=== PATIENT | female | born 1950 | race Caucasian/White ===

== ENCOUNTER → 2023-12-07 08:56 | Outpatient (REF) | payer OTHER, SELFPAY | LOC: HWRCS 08:56 | PROVIDERS: ATTENDING PHYSICIAN Internal Medicine Cardiovascular Disease; FAMILY PHYSICIAN Family Medicine | DX: Z98.890 Other specified postprocedural states (principal); I73.9 Peripheral vascular disease, unspecified; I10 Essential (primary) hypertension; I71.21 Aneurysm of the ascending aorta, without rupture; I31.8 Other specified diseases of pericardium | CPT/HCPCS: 93306 ==

== ENCOUNTER → 2023-12-28 08:22 | Outpatient (REF) | payer OTHER, SELFPAY | LOC: DHCBC/DCA 08:22 | PROVIDERS: ATTENDING PHYSICIAN Internal Medicine Cardiovascular Disease; FAMILY PHYSICIAN Family Medicine | DX: I25.10 Atherosclerotic heart disease of native coronary artery without angina pectoris (principal); Z98.890 Other specified postprocedural states; I73.9 Peripheral vascular disease, unspecified | CPT/HCPCS: 78452; 93017; A9500 ==

== ENCOUNTER → 2024-01-17 09:43 | Outpatient (REF) | payer OTHER, SELFPAY | LOC: RAD 09:43 | PROVIDERS: ATTENDING PHYSICIAN Surgery Vascular Surgery; FAMILY PHYSICIAN Family Medicine | DX: I73.9 Peripheral vascular disease, unspecified (principal) | CPT/HCPCS: 93922; 93925 ==

== ENCOUNTER → 2024-08-03 13:47 | Outpatient (REF) | payer OTHER, SELFPAY | LOC: RAD 13:47 | PROVIDERS: ATTENDING PHYSICIAN Surgery Vascular Surgery; FAMILY PHYSICIAN Family Medicine | DX: I73.9 Peripheral vascular disease, unspecified (principal) | CPT/HCPCS: 93922; 93925 ==

== ENCOUNTER 2024-08-07 19:26 | Emergency (ER) | payer OTHER, SELFPAY ==
[2024-08-07 19:26] VITALS: BMI 31.4
[2024-08-07 19:29] VITALS: BP 142/97
[2024-08-07 19:52] LABS: % Basophils 0.6 % (0-2); % Eosinophils 2.3 % (0-6); % Immature Granulocytes 0.4 % (0-0.5); % Lymphocytes 16.8 % (20.5-51.1); % Monocytes 9.5 % (1.7-9.3); % Neutrophils 70.4 % (42.2-75.2); Absolute Basophils 0.1 10^3/uL (0-0.2); Absolute Eosinophils 0.2 10^3/uL (0-0.7); Absolute Lymphocytes 1.4 10^3/uL (1.2-3.4); Absolute Monocytes 0.8 10^3/uL (0.1-0.6); Absolute Neutrophils 5.7 10^3/uL (1.4-6.5); Hematocrit 39.8 % (37.0-47.0); Hemoglobin 12.9 g/dL (12.0-16.0); Mean Corp Hgb Conc. 32.4 g/dL (33.0-37.0); Mean Corpuscular Hgb 29.8 pg (27.0-31.0); Mean Corpuscular Volume 91.9 fL (81.0-99.0); Mean Platelet Volume 10.9 fL (7.4-10.4); Nucleated Red Blood Cells % 0 %; Platelet Count 162 10^3/uL (130-400); Red Blood Cell Count 4.33 10^6/uL (4.20-5.40); White Blood Cell Count 8.1 10^3/uL (4.8-10.8)
[2024-08-07 20:25] LABS: Troponin I < 0.012 ng/ml
[2024-08-07 20:45] LABS: ALT (SGPT) 24 U/L (0-35); AST (SGOT) 25 U/L (14-36); Albumin 4.5 g/dl (3.5-5.0); Alkaline Phosphatase 116 U/L (38-126); Blood Urea Nitrogen 18 mg/dl (7-17); Calcium 9.3 mg/dl (8.4-10.2); Glucose 125 mg/dl (70-99); Lipase 65 U/L (23-300); Total Bilirubin 0.9 mg/dl (0.2-1.3); Total Protein 7.3 g/dl (6.3-8.2); eGFR > 60.00
[2024-08-07 20:51] LABS: Carbon Dioxide 25 mmol/L (22-30); Chloride 100 mmol/L (98-107); Potassium 4.1 mmol/L (3.5-5.1); Sodium 137 mmol/L (135-145)
[2024-08-07 21:28] VITALS: BP 125/68
[2024-08-07 22:00] VITALS: BP 130/62
[2024-08-07] MEDS: TORADOL 15 MG IV (22:39)
[2024-08-07] MEDS: PROTONIX IV 40 MG IV (22:39)
--- NOTE | 2024-08-07 23:03 | ED.GENMED ---
History of Present Illness
General
Chief Complaint: Abdominal Pain
Source: patient and family
Exam Limitations: none
Time Seen by Provider: 08/07/24 21:37
Nursing documentation reviewed up to this point in time: agreed with
History of Present Illness
History of Present Illness:
Patient presents to ED secondary to persistent chest wall pain over the past 2 days, along with reflux sensation. Patient has taken [id number] medications, including Tums, without relief of symptoms. Denies nausea or vomiting. Denies
diarrhea. Denies fever or chills. Denies trauma. Denies shortness of breath. Patient reports pain at rest, but worse with any movement. Patient has had decreased appetite today. Denies previous history of similar symptoms. Denies recent
illness. Denies recent change in medications or diet.
Past History
Past History
ED Past Medical History: HTN and Hypothyroidism
ED Past Surgical History:
Social History
Tobacco: Smoker
Alcohol: None
Drug: None
Living: with family
Review of Systems
Review of Systems
Allergies reviewed?: Yes
All Other Systems: ROS reviewed and negative except as documented in HPI and ROS
Constitutional: Reports no symptoms
Respiratory: Reports no symptoms
ABD/GI: Reports no symptoms; Denies vomiting or diarrhea
Musculoskeletal: Reports no symptoms
Skin: Reports no symptoms
Neurological: Reports no symptoms
Phy Exam
Physical Exam
Physical Exam:
Physical Exam
General: mild distress, not acutely ill. afebrile
Head: nc/at. eomi
Neck: supple. normal range of motion.
Heart: s1/s2 regular rate and rhythm, no murmur.
Lungs: no acute respiratory distress. clear bilaterally
Abdomen: normal bowel sounds. moderate RUQ/epigastric tenderness to palpation
Neuro: alert and oriented. no focal neurological deficits
Skin: no rash
Psychiatric: well kept. interactive and cooperative
Extremities: no edema. no calf tenderness.
Course
Orders/Labs/Results
Orders:
Orders
08/07/24 19:31
Electrocardiogram (*1) Urgent
Reason for Study: Abdominal Pain
EKG- Treatment ONCE
08/07/24 19:43
Complete Blood Count/With Diff Urgent
Comprehensive Metabolic Panel Urgent
Lipase Urgent
Troponin I Urgent
08/07/24 22:35
Ketorolac [Toradol] 15 mg IV NOW STA
US Abdomen Complete/Upper Urgent
Comment:
Reason For Exam: RUQ/epigastric pain
08/07/24 22:36
Pantoprazole [Protonix IV] 40 mg IV NOW STA
08/08/24 00:22
CT Chest/abd/pelvis Angio W/wo Urgent
Comment:
Reason For Exam: chest/upper abdominal pain
Abnormal Lab Results
08/07/24
19:43
MCHC 32.4 L g/dL
(33.0-37.0)
MPV 10.9 H fL
(7.4-10.4)
Absolute Monos (auto) 0.8 H 10^3/uL
(0.1-0.6)
Lymphocytes % 16.8 L %
(20.5-51.1)
Monocytes % 9.5 H %
(1.7-9.3)
BUN 18 H mg/dl
(7-17)
Glucose 125 H mg/dl
(70-99)
08/07/24 19:43
08/07/24 19:43
Vital Signs
Initial and Last Documented VS:
Initial Vital Signs
Temp Pulse Resp BP Pulse Ox
99 F 91 16 142/97 98
08/07/24 19:29 08/07/24 19:29 08/07/24 19:29 08/07/24 19:29 08/07/24 19:29
Last Documented Vital Signs
Temp Pulse Resp BP Pulse Ox
99 F 80 16 127/70 97
08/07/24 19:29 08/08/24 02:00 08/08/24 02:00 08/08/24 01:00 08/08/24 02:00
MDM/Problems Addressed
MDM/Problems Addressed:
Patient with an unremarkable workup in ED, including blood work and multiple imaging studies. Patient otherwise remains afebrile, he medically stable, and reports improvement after treatment. Patient send patient likely musculoskeletal versus
gastritis versus reflux. Patient will be advised to take PPI as an outpatient, along with diet modification, as well as PCP follow-up. Advised to return to ED with for symptoms, i.e. fever/worsening pain/vomiting. Patient expresses understanding,
at time of discharge, to the care of her daughter.
*EKG
Interpreted by ED Provider?: Yes
EKG Intrepretation Date: 08/07/24
Heart Rate: 85
Rhythm: sinus
[place]: normal axis
Ischemia: T-wave inversion
*Critical Care Note
Total Time (30-74mins, 75-104mins- exclusive of procedures): Not Applicable
ED Attending Note
-
Portions of this chart may have been created with voice recognition software.� Occasional wrong word or��sound alike� substitutions may have occurred due to the inherent limitations of voice recognition software.
Discharge Plan
Departure
Patient Disposition: Home (Routine Discharge)
Date of Disposition: 08/08/24
Time of Disposition: 02:54
Patient with high blood pressure during this ER visit?: Yes
Condition: Good
Discharge Problem:
Abdominal pain
Instructions: [place] diet, Abdominal Pain
Prescriptions:
No Action
levothyroxine 125 MCG tablet
125 mcg PO DAILY Qty: 0 0RF
pantoprazole 40 MG tablet,delayed release (DR/EC)
40 mg PO DAILY Qty: 30 11RF
amlodipine 5 MG tablet
5 mg PO DAILY Qty: 30 11RF
carvedilol 3.125 MG tablet
3.125 mg PO BID Qty: 60 6RF
atorvastatin 20 MG tablet
20 mg PO QPM
losartan [Cozaar] 100 MG tablet
100 mg PO DAILY
aspirin [[place] Aspirin] 81 MG tablet,delayed release (DR/EC)
162 mg PO DAILY
Referrals:
[facility], [Other]
Alexandra Marie MD [Family Provider] -
Activity Restrictions/Additional Instructions:
As discussed, please follow-up with your primary care physician for reevaluation. Please consider return to ED with worsening symptoms, i.e. fever/worsening pain/vomiting.
Interventions
Interventions:
*Risk Screen - Suicide Last Done: 08/07/24 19:29
*General Assessment Last Done: 08/07/24 19:29
*Neglect/Abuse Screening Last Done: 08/07/24 19:29
ED- Fall Risk Assessment Last Done: 08/07/24 21:32
*ED COVID-19 Vaccine History Last Done: 08/07/24 21:32
*Nursing Disposition Last Done: 08/08/24 03:07
ZL-Iuorwg-Faflfemjky Assessment Last Done: 08/07/24 21:32
Discharge Date and Time
Discharge Date/Time: 08/08/24 03:07
Print Language: SAO TOMEAN
[2024-08-08 00:12] VITALS: BP 131/70
[2024-08-08 01:00] VITALS: BP 127/70
== END 2024-08-08 03:07 | disposition home or self-care (01) ==
LOC: EMR 19:26
PROVIDERS: Student in an Organized Health Care Education/Training Program; EMERGENCY PHYSICIAN Emergency Medicine; FAMILY PHYSICIAN Family Medicine
DX: R10.9 Unspecified abdominal pain (principal); I10 Essential (primary) hypertension; F17.200 Nicotine dependence, unspecified, uncomplicated
CPT/HCPCS: 99285; 96374; 96375; 71275; 74174; 76700; 80053; 83690; 84484; 85025; 93005; Q9967

== ENCOUNTER 2024-08-24 22:57 | Emergency (ER) | payer OTHER, SELFPAY ==
[2024-08-24 23:18] VITALS: BP 153/91
[2024-08-25] MEDS: AUGMENTIN 875 MG/125 MG 1 TABLET PO (03:01)
[2024-08-25 03:05] VITALS: BP 152/81
--- NOTE | 2024-08-25 03:51 | ED.SKININJ ---
HPI-Injury
General
Chief Complaint: Bite
Source: patient and family
Time Seen by Provider: 08/25/24 02:13
History of Present Illness-Injury
Initial Injury comments:
74-year-old female who presents after her daughter's dog bit her in the face. She states that the dog snapped and bit her near the right eyebrow. Shots are up-to-date for the dog. Patient is unknown last tetanus. No vision changes. Patient's
daughter states that it was her sister's dog
Past History
Past History
ED Past Medical History: HTN and Hypothyroidism
ED Past Surgical History:
Social History
Tobacco: Smoker
Alcohol: None
Drug: None
Living: with family
Phy Exam
Physical Exam
Physical Exam:
CONSTITUTIONAL Vital signs reviewed, Patient alert and oriented to person, place and time. Well-appearing
HEAD atraumatic, normocephalic.
EYES right orbit intact. No redness to the sclera. Significant swelling to the right upper lid with a 1.5 cm x 1 cm ovoid laceration to the right brow. See picture
NECK normal range of motion, Trachea midline, no jugular venous distention.
RESP no respiratory distress
UPPER EXTREMITY Gross Range of motion normal, gross motor strength normal
LOWER EXTREMITY Gross range of motion normal, Gross motor strength normal
NEURO Speech normal, No focal motor deficits include, [place] coma scale 15, Memory normal, Cranial Nerves intact to screening exam.
SKIN Skin warm, dry, and normal in color.
PSYCHIATRIC Patient oriented to person place and time, Normal affect.
Course
Orders/Labs/Results
Orders:
Orders
08/25/24 02:27
Tranexamic Acid 1000 mg/100 ml [Tranexamic Acid] 1,000 mg in 100 ml .ROUTE .STK-MED
08/25/24 02:28
Tranexamic Acid 1,000 mg .ROUTE .STK-MED ONE
08/25/24 02:45
Amoxicillin 875 mg/Clav 125 mg [Augmentin 875 mg/125 mg] 1 tablet PO NOW STA
08/25/24 03:51
Tetanus/Diphth/Acelpertussis [Adacel] 0.5 ml IM .ONCE ONE
Vital Signs
Initial and Last Documented VS:
Initial Vital Signs
Temp Pulse Resp BP Pulse Ox
98.2 F 89 20 153/91 96
08/24/24 23:18 08/24/24 23:18 08/24/24 23:18 08/24/24 23:18 08/24/24 23:18
Last Documented Vital Signs
Temp Pulse Resp BP Pulse Ox
98.2 F 85 20 152/81 96
08/24/24 23:18 08/25/24 03:05 08/25/24 03:05 08/25/24 03:05 08/24/24 23:18
Procedures
Laceration Closure
Right Upper Eye lid:
Status of Wound: bite
Size of Wound in cm: 1.5
Description of Wound Edges: ragged and flap-well vascularized
Preparation: cleaned with saline
Anesthesia: 2% Lidocaine with epi
Revision/Debridement: minor revision
Wound exploration: explored to base- no FB
Type of Closure: layered closure
Skin Closure Material: 6-0 prolene and 6-0 vicryl
Number of sutures: 8
Additional information:
1 deep Vicryl suture placed medially with 7 skin layer sutures placed
MDM/Problems Addressed
MDM/Problems Addressed:
Large eyebrow laceration
*Pulse Oximetry
Patient hypoxic: no
*Critical Care Note
Total Time (30-74mins, 75-104mins- exclusive of procedures): Not Applicable
Data Reviewed
Source: patient and family
Patient Management
Discussion with other providers: Financial Sales Assistant (Case discussed with plastics)
Escalation/DeEscalation of care consider admission/obs:
Edges were approximated. There was some dimpling medially and I did not want to extend the laceration given its location. I was able to bring the skin edges close together with only minimal strain on the wound edges. Case discussed with plastics
who will follow her up on Tuesday. Plastics can revise if needed.
ED Attending Note
-
Portions of this chart may have been created with voice recognition software.� Occasional wrong word or��sound alike� substitutions may have occurred due to the inherent limitations of voice recognition software.
Discharge Plan
Departure
Patient Disposition: Home (Routine Discharge)
Date of Disposition: 08/25/24
Time of Disposition: 03:56
Patient with high blood pressure during this ER visit?: Yes
Discharge Problem:
Dog bite, Facial laceration
Instructions: Animal Bites (DC), Wound Care (DC), Insect Bites and Stings (DC), Laceration Repair With Stitches (DC), BLOOD PRESSURE
Prescriptions:
New
amoxicillin-pot clavulanate 875-125 mg tablet
1 tab PO BID Qty: 20 0RF
No Action
levothyroxine 125 MCG tablet
125 mcg PO DAILY Qty: 0 0RF
pantoprazole 40 MG tablet,delayed release (DR/EC)
40 mg PO DAILY Qty: 30 11RF
amlodipine 5 MG tablet
5 mg PO DAILY Qty: 30 11RF
carvedilol 3.125 MG tablet
3.125 mg PO BID Qty: 60 6RF
atorvastatin 20 MG tablet
20 mg PO QPM
losartan [Cozaar] 100 MG tablet
100 mg PO DAILY
aspirin [[place] Aspirin] 81 MG tablet,delayed release (DR/EC)
162 mg PO DAILY
Referrals:
Andrey Rivera MD [Active] -
Activity Restrictions/Additional Instructions:
Please change dressings twice a day. Please see plastic surgery on Tuesday for follow-up. Return immediately for redness, drainage from the wound, fevers or any other concerns.
Interventions
Interventions:
*Risk Screen - Suicide Last Done: 08/24/24 23:18
ED-Skin Assessment Last Done: 08/25/24 02:34
Discharge Date and Time
Print Language: UPPER SORBIAN
[2024-08-25] MEDS: ADACEL 0.5 ML IM (03:55)
== END 2024-08-25 04:08 | disposition home or self-care (01) ==
LOC: EMR 22:57
PROVIDERS: EMERGENCY PHYSICIAN Emergency Medicine; FAMILY PHYSICIAN Family Medicine
DX: S01.151A Open bite of right eyelid and periocular area, initial encounter (principal); W54.0XXA Bitten by dog, initial encounter; F17.200 Nicotine dependence, unspecified, uncomplicated; Z23 Encounter for immunization; I10 Essential (primary) hypertension
CPT/HCPCS: 99284; 12051; 90471; 90715

== ENCOUNTER → 2025-02-11 12:53 | Outpatient (REF) | payer OTHER, SELFPAY | LOC: RAD 12:53 | PROVIDERS: ATTENDING PHYSICIAN Surgery Vascular Surgery; FAMILY PHYSICIAN Family Medicine | DX: I73.9 Peripheral vascular disease, unspecified (principal) | CPT/HCPCS: 93922; 93925 ==